=== PATIENT | male | born 1995 | race Hispanic/Latino ===

== ENCOUNTER 2018-08-16 07:57 | Emergency (ER) | payer BC, OTHER ==
[2018-08-16] MEDS ORDERED: Ketorolac Tromethamine 30 MG/ML VIAL ONE (11:06)
[2018-08-16 11:14] LABS: Bilirubin Small (Negative); Blood, Urine Negative (Negative); Glucose, Urine (Dipstick) Negative (Negative); Leukocyte Negative (Negative); Nitrite Negative (Negative); Protein, Urine (Dipstick) 100 mg/dL (Neg-Trace); Urobilinogen 0.2 mg/dL (Less than 2)
[2018-08-16 11:20] LABS: Clarity Clear (Clear)
[2018-08-16 11:23] LABS: RBC/HPF None Seen HPF (0-3); WBC/HPF None Seen HPF (0-3)
[2018-08-16 11:24] LABS: Bacteria/HPF Rare-Few HPF (None Seen); Squamous Epithelial 0-3 HPF (0-3)
[2018-08-16 11:27] LABS: #Eosinphils 0.1 thou/uL (0.0-0.7); #Lymphocytes 1.7 thou/uL (1.20-3.40); #Monocytes 0.5 thou/uL (0.11-0.59); #Neutrophils 4.3 thou/uL (1.40-6.50); %Basophils 0.3 % (0.0-1.0); %Eosinophils 2.2 % (0.0-10.0); %Lymphocytes 25.3 % (21.0-51.0); %Monocytes 7.9 % (0.0-10.0); %Neutrophils 64.4 % (42.0-75.0); Hemoglobin 17.5 g/dL (14.0-18.0); Mean Corpuscular HGB CONC 32.7 g/dL (32.0-36.0); Mean Corpuscular Hemoglobin 27.8 pg (27.0-31.0); Mean Corpuscular Volume 84.8 fL (78.0-98.0); Mean Platelet Volume 7.5 fL (7.4-10.4); Platelet Count 273 thou/uL (130-400); RBC Distribution Width 13.1 % (11.5-14.5); White Blood Cell (WBC) Count 6.7 thou/uL (4.8-10.8)
[2018-08-16 11:46] LABS: ALT (SGPT) 19 U/L (8-55); AST (SGOT) 21 U/L (5-34); Albumin 5.1 g/dL (3.5-5.0); Alkaline Phosphatase 116 U/L (40-150); Anion Gap 14 mmol/L (10-20); BUN (Urea Nitrogen) 25 mg/dL (8.9-20.6); Bilirubin, Total 1.9 mg/dL (0.2-1.2); Calc. Creatinine Clearance 0 mL/min (70-130); Calcium 10.1 mg/dL (7.8-10.44); Carbon Dioxide 27 mmol/L (22-29); Chloride 96 mmol/L (98-107); Estimated GFR-MDRD Greater than 90; Globulin 4.1 g/dL (2.4-3.5); Glucose 87 mg/dL (70-105); Potassium 4.2 mmol/L (3.5-5.1); Protein, Total 9.2 g/dL (6.0-8.3); Sodium 133 mmol/L (136-145)
== END 2018-08-16 13:07 | disposition home or self-care (01) ==
LOC: ERS 07:57
DX: K52.9 Noninfective gastroenteritis and colitis, unspecified (principal); F17.210 Nicotine dependence, cigarettes, uncomplicated
CPT/HCPCS: 80053; 81003; 81015; 85025; 96361; 96374; J1885

== ENCOUNTER 2018-10-13 13:34 | Emergency (ER) | payer BC | END 2018-10-13 14:51 | disposition home or self-care (01) | LOC: ERS 13:34 | DX: R20.2 Paresthesia of skin (principal); F17.210 Nicotine dependence, cigarettes, uncomplicated; W86.8XXA Exposure to other electric current, initial encounter | CPT/HCPCS: 99284 ==

== ENCOUNTER 2019-05-07 06:05 | Emergency (ER) | payer BC ==
[2019-05-07] MEDS ORDERED: Ondansetron ODT 4 MG TAB ONE (06:29)
[2019-05-07] MEDS ORDERED: Acetaminophen 500 MG TAB ONE (06:29)
--- NOTE | 2019-05-07 08:09 | RAD ---
CHEST 1 VIEW: DATE: 05/07/2019. TIME: 6:54 AM. HISTORY: Cough, shortness of breath, sore throat. COMPARISON: 01/14/2017. FINDINGS: The heart size is normal. The lungs are expanded and clear. The bony thorax is normal. IMPRESSION: Normal exam. POS: [facility]
== END 2019-05-07 07:35 | disposition home or self-care (01) ==
LOC: ERS 06:05
DX: B34.9 Viral infection, unspecified (principal); F17.210 Nicotine dependence, cigarettes, uncomplicated
CPT/HCPCS: 71045; 99283; Q0162

== ENCOUNTER 2019-11-12 10:49 | Emergency (ER) | payer OTHER, BC ==
--- NOTE | 2019-11-12 12:49 | CT ---
CT BRAIN NONCONTRAST: DATE: 11/12/2019 HISTORY: 24-year-old male status post acute head trauma FINDINGS: There is no evidence of acute intra-axial or extra-axial hemorrhage. There is no midline shift or any other mass effect. There is no extra-axial fluid collection. The ventricles are normal in size and configuration. The tympanomastoid cavities, and the upper portions of the paranasal sinuses included in these images, are grossly clear. Calvarium is intact. IMPRESSION: Normal.
--- NOTE | 2019-11-12 12:52 | CT ---
CT maxillofacial noncontrast: HISTORY: 24-year-old male status post acute facial bone trauma FINDINGS: No fracture is identified. The orbits are clear. No hematoma identified. Paranasal sinuses and bilate ral tympanomastoid cavities are essentially clear, except for small partial opacification of a few right ethmoid air cells. IMPRESSION: Negative
[2019-11-12] MEDS ORDERED: Ketorolac Tromethamine 30 MG/ML VIAL ONE (12:58)
== END 2019-11-12 13:48 | disposition home or self-care (01) ==
LOC: ERS 10:49
DX: S06.9X9A Unspecified intracranial injury with loss of consciousness of unspecified duration, initial encounter (principal); S00.83XA Contusion of other part of head, initial encounter; W22.8XXA Striking against or struck by other objects, initial encounter
CPT/HCPCS: 70450; 70486; J1885

== ENCOUNTER 2020-03-13 10:24 | Outpatient (CLI) | payer BC ==
--- NOTE | 2020-03-13 14:17 | RAD ---
RIGHT WRIST THREE VIEWS: 03/13/20 HISTORY: Wrist pain. There is an old first metacarpal fracture incidentally seen with arthritic changes of the first carpo metacarpal joint space. Carpal bones appear unremarkable. No joint space narrowing or erosive change. IMPRESSION: Old first metacarpal fracture. POS: [facility]
== END 2020-03-13 10:25 | disposition home or self-care (01) ==
LOC: RAD-FRANK 10:24
PROVIDERS: ATTEND Nurse Practitioner Family
DX: M25.531 Pain in right wrist (principal); Z87.81 Personal history of (healed) traumatic fracture

== ENCOUNTER 2020-07-04 22:24 | Inpatient (IN) | payer OTHER, BC ==
[~2020-07-04 22:24] MED LIST: Iopamidol-370 76% 500 ML 1 ML ONE
[2020-07-04] MEDS ORDERED: Morphine 10 MG/ML VIAL ONE (22:43)
[2020-07-04] MEDS ORDERED: Boostrix 0.5 ML (Tdap) VIAL ONE (22:43)
[2020-07-04] MEDS ORDERED: Midazolam HCl 2 mg/2 ml Vial ONE (22:49)
[2020-07-04 22:56] LABS: #Basophils 0.1 thou/uL (0.0-0.2); #Eosinphils 0.4 thou/uL (0.0-0.7); #Lymphocytes 5.4 thou/uL (1.20-3.40); #Monocytes 1.2 thou/uL (0.11-0.59); #Neutrophils 7.9 thou/uL (1.40-6.50); %Basophils 0.5 % (0.0-1.0); %Eosinophils 2.9 % (0.0-10.0); %Lymphocytes 35.8 % (21.0-51.0); %Neutrophils 52.7 % (42.0-75.0); Hemoglobin 16.2 g/dL (14.0-18.0); Mean Corpuscular HGB CONC 34.2 g/dL (32.0-36.0); Mean Corpuscular Hemoglobin 30.5 pg (27.0-31.0); Mean Corpuscular Volume 89.2 fL (78.0-98.0); Mean Platelet Volume 6.8 fL (7.4-10.4); Platelet Count 282 thou/uL (130-400); RBC Distribution Width 12.2 % (11.5-14.5)
[2020-07-04] MEDS ORDERED: Ketamine 50 MG/ML (10ML VIAL) ONE (23:15)
[2020-07-04 23:18] LABS: ALT (SGPT) 26 U/L (8-55); AST (SGOT) 41 U/L (5-34); Albumin 4.2 g/dL (3.5-5.0); Alkaline Phosphatase 96 U/L (40-110); Anion Gap 17 mmol/L (10-20); BUN (Urea Nitrogen) 11 mg/dL (8.9-20.6); Bilirubin, Total 0.7 mg/dL (0.2-1.2); Calc. Creatinine Clearance 0 mL/min (70-130); Calcium 8.4 mg/dL (7.8-10.44); Carbon Dioxide 19 mmol/L (22-29); Chloride 104 mmol/L (98-107); Globulin 3.2 g/dL (2.4-3.5); Glucose 105 mg/dL (70-105); Potassium 3.3 mmol/L (3.5-5.1); Protein, Total 7.4 g/dL (6.0-8.3); Sodium 137 mmol/L (136-145)
[2020-07-05] MEDS ORDERED: Ketorolac Tromethamine 30 MG/ML VIAL ONE (00:35)
[2020-07-05] MEDS ORDERED: Morphine 4 MG/ML VIAL ONE ×3 (00:35→08:23)
[2020-07-05] MEDS ORDERED: Bupivacaine 0.5% 10 ML VIAL ONE (00:35)
[2020-07-05 00:41] LABS: Bacteria/HPF None Seen HPF (None Seen); Bilirubin Negative (Negative); Blood, Urine 1+ (Negative); Clarity Clear (Clear); Glucose, Urine (Dipstick) Normal (Negative); Ketone, Urine Negative (Negative); Leukocyte Negative Leu/uL (Negative); Nitrite Negative (Negative); Protein, Urine (Dipstick) Negative (Neg-Trace); RBC/HPF 0-3 HPF (0-3); Specific Gravity, Urine 1.028 (1.002-1.036); Squamous Epithelial None Seen HPF (0-3); Urobilinogen Normal mg/dL (Less than 2); WBC/HPF 0-3 HPF (0-3); pH, Urine 6.5 (5.0-9.0)
[2020-07-05] MEDS ORDERED: hydrALAZINE 20 MG/ML VIAL SLOW IVP PRN (02:52)
[2020-07-05] MEDS ORDERED: Dextrose 50% Abboject 50 ML SYRINGE SLOW IVP PRN (02:52)
[2020-07-05] MEDS ORDERED: Ondansetron ODT 4 MG TAB PO PRN (02:52)
[2020-07-05] MEDS ORDERED: traMADol HCl 50 MG TAB PO PRN (02:52)
[2020-07-05] MEDS ORDERED: Dextrose 5% in Water 1,000 ML IV PRN (02:52)
[2020-07-05] MEDS ORDERED: Ondansetron PF 4 MG/2 ML Vial IVP PRN (02:52)
[2020-07-05] MEDS ORDERED: Ketorolac Tromethamine 30 MG/ML VIAL IVP SCH (03:15)
[2020-07-05] MEDS: Sodium Chloride 0.9% 1,000 ML IV SCH ×2 (03:25→10:41)
[2020-07-05] MEDS: Cyclobenzaprine 10 MG TAB PO PRN ×3 (03:25→20:15)
[2020-07-05] MEDS: traMADol HCl 50 MG TAB PO PRN ×3 (03:25→10:38)
[2020-07-05] MEDS: Morphine 2 MG/ML VIAL SLOW IVP PRN ×2 (03:26→07:31)
[2020-07-05 03:37] VITALS: BMI 33.4
[2020-07-05] MEDS: Ibuprofen 800 MG TAB PO SCH ×3 (04:51→23:01)
[2020-07-05] MEDS: Acetaminophen 500 MG TAB PO SCH ×4 (04:51→23:01)
[2020-07-05 05:17] LABS: #Lymphocytes 1.2 thou/uL (1.20-3.40); #Monocytes 1.1 thou/uL (0.11-0.59); #Neutrophils 9.9 thou/uL (1.40-6.50); %Eosinophils 0.1 % (0.0-10.0); %Lymphocytes 10.1 % (21.0-51.0); %Neutrophils 80.8 % (42.0-75.0); Hemoglobin 14.4 g/dL (14.0-18.0); Mean Corpuscular HGB CONC 33.3 g/dL (32.0-36.0); Mean Corpuscular Hemoglobin 29.6 pg (27.0-31.0); Mean Corpuscular Volume 88.9 fL (78.0-98.0); Mean Platelet Volume 6.8 fL (7.4-10.4); Platelet Count 231 thou/uL (130-400); RBC Distribution Width 12.1 % (11.5-14.5); Red Blood Cell (RBC) Count 4.87 mill/uL (4.70-6.10); White Blood Cell (WBC) Count 12.2 thou/uL (4.8-10.8)
[2020-07-05 05:37] LABS: Anion Gap 14 mmol/L (10-20); BUN (Urea Nitrogen) 11 mg/dL (8.9-20.6); Calc. Creatinine Clearance 224 mL/min (70-130); Calcium 8.3 mg/dL (7.8-10.44); Carbon Dioxide 25 mmol/L (22-29); Chloride 102 mmol/L (98-107); Glucose 113 mg/dL (70-105); Sodium 137 mmol/L (136-145)
[2020-07-05 06:11] LABS: SARS-CoV-2 NAA Rapid Test Not Detected (NotDetected)
[2020-07-05] MEDS: Famotidine 20 MG TAB PO SCH ×2 (08:05→20:16)
[2020-07-05] MEDS ORDERED: Lidocaine 1% (PF) 30 ML VIAL ONE (08:22)
[2020-07-05] MEDS ORDERED: Lidocaine 1% (PF) 30 ML VIAL SC SCH (08:30)
[2020-07-05] MEDS ORDERED: Morphine 4 MG/ML VIAL SLOW IVP SCH (08:30)
[2020-07-05] MEDS: traMADol HCl 50 MG TAB PO SCH ×2 (15:48→23:02)
[2020-07-05] MEDS ORDERED: Acetaminophen/Codeine 30-300mg Tablet PO PRN (18:33)
[2020-07-05] MEDS: Gabapentin 300 MG CAP PO SCH (20:16)
[2020-07-06 05:01] VITALS: TEMP 97.9
[2020-07-06] MEDS: Ibuprofen 800 MG TAB PO SCH (05:01)
[2020-07-06] MEDS: Acetaminophen 500 MG TAB PO SCH (05:01)
[2020-07-06] MEDS: traMADol HCl 50 MG TAB PO SCH ×2 (05:02→09:04)
[2020-07-06] MEDS: Famotidine 20 MG TAB PO SCH (08:34)
[2020-07-06] MEDS: Gabapentin 300 MG CAP PO SCH (08:34)
[2020-07-06 11:21] VITALS: BP 160/91
== END 2020-07-06 11:20 | disposition home or self-care (01) | DRG 563 ==
LOC: ERS 22:24 → SURG A 07-05 02:52
PROVIDERS: ADMIT Specialist; ATTEND Specialist
PROC: 2W3SX1Z Immobilization of Right Foot using Splint (ICD-10-PCS; principal; 2020-07-05)
PROC: 0HQLXZZ Repair Left Lower Leg Skin, External Approach (ICD-10-PCS; 2020-07-05)
DX: S92.061A Displaced intraarticular fracture of right calcaneus, initial encounter for closed fracture (principal); S92.411A Displaced fracture of proximal phalanx of right great toe, initial encounter for closed fracture; S81.012A Laceration without foreign body, left knee, initial encounter; Z20.822 Contact with and (suspected) exposure to COVID-19; V89.2XXA Person injured in unspecified motor-vehicle accident, traffic, initial encounter
CPT/HCPCS: 12032; 29515; 36415; 70450; 71260; 72125; 74177; 80048; 80053; 81003; 81015; 85025; 90471; 90715; 96374; 96375; 96376; G0390; J1885; J2001; J2250; J2270; J2405; J3490; Q0162; Q9967; U0002; U0005

== ENCOUNTER 2023-02-17 13:05 | Emergency (ER) | payer BC, OTHER ==
[2023-02-17] MEDS ORDERED: Ketorolac Tromethamine 30 MG (1 mL) VIAL ONE (13:40)
== END 2023-02-17 14:12 | disposition home or self-care (01) ==
LOC: ERS 13:05
DX: M25.531 Pain in right wrist (principal); M77.8 Other enthesopathies, not elsewhere classified; G62.9 Polyneuropathy, unspecified
CPT/HCPCS: 96372; J1885

== ENCOUNTER 2023-03-07 10:24 | Emergency (ER) | payer BC, OTHER ==
[2023-03-07 10:57] LABS: #Eosinphils 0.2 thou/uL (0.0-0.7); #Monocytes 0.4 thou/uL (0.11-0.59); #Neutrophils 3.4 thou/uL (1.40-6.50); %Basophils 0.6 % (0.0-1.0); %Eosinophils 3.3 % (0.0-10.0); %Lymphocytes 27.1 % (21.0-51.0); %Monocytes 6.6 % (0.0-10.0); %Neutrophils 62.2 % (42.0-75.0); Hematocrit 44.4 % (42.0-52.0); Hemoglobin 15.1 g/dL (14.0-18.0); Mean Corpuscular Hemoglobin 29.2 pg (27.0-31.0); Mean Corpuscular Volume 85.9 fl (78.0-98.0); Mean Platelet Volume 8.9 fL (7.4-10.4); Platelet Count 300 10x3/uL (130-400); RBC Distribution Width 12.5 % (11.5-14.5); Red Blood Cell (RBC) Count 5.17 mill/uL (4.70-6.10); White Blood Cell (WBC) Count 5.4 10x3/uL (4.8-10.8)
[2023-03-07 11:52] LABS: ALT (SGPT) 19 U/L (8-55); AST (SGOT) 24 U/L (5-34); Albumin 4.6 g/dL (3.5-5.0); Alkaline Phosphatase 90 U/L (40-110); Anion Gap 14 mmol/L (10-20); BUN (Urea Nitrogen) 9 mg/dL (8.9-20.6); Bilirubin, Total 0.9 mg/dL (0.2-1.2); Calc. Creatinine Clearance 0 mL/min (70-130); Calcium 8.8 mg/dL (7.8-10.44); Carbon Dioxide 24 mmol/L (22-29); Chloride 105 mmol/L (98-107); Estimated GFR 126; Globulin 3.3 g/dL (2.4-3.5); Glucose 106 mg/dL (70-105); Lipase 29 U/L (8-78); Potassium 3.7 mmol/L (3.5-5.1); Protein, Total 7.9 g/dL (6.0-8.3); Sodium 139 mmol/L (136-145)
[2023-03-07] MEDS ORDERED: Lidocaine 2% Viscous 10 mL, Alum & Magn 30 mL SSW SCH (12:30)
[2023-03-07 13:13] LABS: Troponin I Less than 0.010 ng/mL (< 0.028)
[2023-03-07] MEDS ORDERED: Ketorolac Tromethamine 30 MG (1 mL) VIAL ONE (13:28)
[2023-03-07] MEDS ORDERED: Famotidine/PF 20 mg/2ml Vial ONE (13:29)
== END 2023-03-07 14:09 | disposition home or self-care (01) ==
LOC: ERS 10:24
DX: R10.13 Epigastric pain (principal); R10.11 Right upper quadrant pain
CPT/HCPCS: 36415; 71045; 76705; 80053; 83690; 84484; 85025; 93005; 96361; 96374; 96375; J1885; S0028

== ENCOUNTER 2023-04-02 20:42 | Emergency (ER) | payer BC ==
[2023-04-02] MEDS ORDERED: Ibuprofen 800 MG TAB ONE (21:39)
== END 2023-04-02 21:50 | disposition home or self-care (01) ==
LOC: ERS 20:42
DX: S63.642A Sprain of metacarpophalangeal joint of left thumb, initial encounter (principal); W21.05XA Struck by basketball, initial encounter; Y93.67 Activity, basketball

== ENCOUNTER 2024-02-16 13:23 | Emergency (ER) | payer BC, OTHER | END 2024-02-16 16:03 | disposition home or self-care (01) | LOC: ERS 13:23 | DX: S93.402A Sprain of unspecified ligament of left ankle, initial encounter (principal); X50.1XXA Overexertion from prolonged static or awkward postures, initial encounter; Y93.01 Activity, walking, marching and hiking | CPT/HCPCS: 99283 ==